=== PATIENT | female | born 1980 | race Caucasian/White ===

== ENCOUNTER 2016-09-21 12:03 | Emergency (ER) | payer MEDICARE ==
--- NOTE | ~2016-09-21 | CT2 ---
[facility] A Service of [facility] & [facility] RADIOLOGY TEXT RESULTS PATIENT: RICKIE TAMEZ I LOCATION: [facility] : [birth year] UNIT #: [id number] AGE: [address]: Matt Dodge DO SEX: F ORDER DR: [id number] [facility] [address] [place], [place] [address] [id number] MR#: [id number] Acc #: [id number] NAME: RICKIE TAMEZ I. : 1980 SEX: F STUDY DATE/TIME: 09/21/2016 14:43 UNIT: [facility] ROOM: STUDY DESCRIPTION: CT Abd and Pelv W Cont Attending Physician: Matt Dodge D.O. Ordering Physician: Matt Dodge D.O. Primary Care Physician: Leann Felix M.D. MEDICAL IMAGING REPORT This report is preliminary unless electronic signature is present EXAM CT abdomen and pelvis 09/21/2016 HISTORY Abdomen pain, nausea, diarrhea started Monday. Right lower quadrant left lower quadrant x5 days. TECHNIQUE CT abdomen and pelvis performed with intravenous administration of 100 mL Isovue-370. Enteric contrast not administered. This CT exam was performed with one or more of the following radiation dose reduction techniques: automatic exposure control, adjustment of mA and/or kV according to patient size, and iterative reconstruction. FINDINGS Lung bases show minimal dependent atelectasis. Inferior heart and pericardium unremarkable. Segment II 7-8 mm hepatic cyst. Remainder of the liver unremarkable. Gallbladder, spleen, pancreas, adrenal glands unremarkable. Left kidney and ureter normal. Right kidney contains non-obstructing 8-9 mm upper pole calculus. No acute right renal abnormalities. CT PELVIS: No inguinal adenopathy. Urinary bladder unremarkable. No fluid collection in the pelvis. Uterus and ovaries show no acute appearing abnormality. There is a vaginal tampon in place. No pelvic or retroperitoneal adenopathy. Fluid in the esophagus suggesting gastroesophageal reflux. This could place the patient at increased risk for aspiration. Stomach, small bowel, appendix unremarkable. Bony structures unremarkable. The vascular structures appear normal in overall caliber. STS. [facility] A Service of [facility] & [facility] RADIOLOGY TEXT RESULTS PATIENT: RICKIE TAMEZ I LOCATION: [facility] #: [id number] : [birth year] UNIT #: [id number] AGE: [address]: Matt Dodge DO SEX: F ORDER DR: Review of the liver shows tiny subcentimeter cysts in the hepatic dome. IMPRESSION 1. No clearly acute abnormalities seen in the abdomen or pelvis. Gallbladder, pancreas, appendix normal. 2. Kidneys show no acute abnormality. There is an 8-9 mm non-obstructing calculus upper pole of the right kidney. 3. There is adnexal regions show no acute abnormality. Vaginal tampon in place. 4. Small subcentimeter hepatic cysts. 5. There is some fluid in the esophagus suggesting gastroesophageal reflux. This may place patient at increased risk for aspiration. 6. Dependent atelectasis lung bases. Dictated by... Gadiel Chavez M.D. THIS IS AN ELECTRONICALLY VERIFIED REPORT Gadiel Chavez M.D. at 09/22/2016 8:25 AM Tessy TD: 09/21/2016 19:18 JOB #: [id number] MEDICAL IMAGING REPORT Page 1 of 1 COPY
[~2016-09-21 12:03] MED LIST: ABILIFY PO; COGENTIN PO; PRILOSEC20 MG PO; TOPAMAX200 MG PO
[2016-09-21 12:45] LABS: BASOPHIL% 0.8 % (0-2.5); EOSINOPHIL# 0.2 X10e3 (0-0.7); EOSINOPHIL% 2.7 % (0.0-7.0); HEMATOCRIT 40.7 % (35.0-45.0); HEMOGLOBIN 14.1 gm/dL (12.0-16.0); LYMPHOCYTE# 1.7 X10e3 (1.0-3.5); LYMPHOCYTE% 26.1 % (17.0-45.0); MEAN CELL VOLUME 90.1 FL (83-96); MEAN CORPUSCULAR HEMOGLOBIN 31.2 PG (28-34); MEAN CORPUSCULAR HGB CONC 34.6 g/dL (30-36); MEAN PLATELET VOLUME 6.2 FL (6.5-11.5); MONOCYTE# 0.7 X10e3 (0-1.0); MONOCYTE% 10.2 % (3.0-12.0); NEUTROPHIL# 3.8 X10e3 (1.5-7.1); NEUTROPHIL% 60.2 % (40-75); PLATELET COUNT 305 X10e3 (140-420); RED BLOOD COUNT 4.52 X10e (3.90-5.30); RED CELL DISTRIBUTION WIDTH 12.9 % (11.0-15.5); WHITE BLOOD COUNT 6.4 X10e3 (4.0-10.5)
[2016-09-21 12:53] LABS: DIFF IND NO
[2016-09-21 13:01] LABS: URINE SOURCE CLEAN CATCH
[2016-09-21 13:08] LABS: URINE APPEARANCE CLEAR; URINE BILIRUBIN NEG (NEG); URINE BLOOD 2+ (NEG); URINE COLOR YELLOW; URINE GLUCOSE NEG (NEG); URINE KETONE NEG (NEG); URINE LEUKOCYTE ESTERASE NEG (NEG); URINE NITRATE NEG (NEG); URINE PH 7.5 (5-8); URINE PROTEIN NEG (NEG); URINE SPECIFIC GRAVITY 1.003 (1.003-1.035); URINE UROBILINOGEN 0.2 MG/DL (NEG)
[2016-09-21 13:09] LABS: URBCS1 AUWI 0-2 /[HPF] (0-2); URINE BACTERIA AUWI NEG (NEGATIVE); URINE SQUAMOUS EPITHELIAL CELL NONE SEEN /[HPF]; UWBCS1 AUWI 0-2 (0-5)
[2016-09-21 13:22] LABS: ALBUMIN SERUM 3.8 g/dL (3.5-5.0); ALKALINE PHOSPHATASE 74 U/L (32-92); ALT (SGPT) 26 U/L (10-40); AST (SGOT) 17 U/L (10-42); BILIRUBIN,TOTAL 0.3 mg/dL (0.2-2.0); BLOOD UREA NITROGEN 11 mg/dL (9-23); BUN/CREATININE RATIO 15.71; CALCIUM SERUM 8.7 mg/dL (8.4-10.2); CARBON DIOXIDE 24 mmol/L (22-31); CHLORIDE 107 mmol/L (100-111); CREATININE SERUM 0.7 mg/dL (0.6-1.4); GLOM FILT RATE Estimated 112.3 mL/min (>60); GLUCOSE FASTING 95 mg/dL (70-110); LIPASE 27 U/L (22-51); POTASSIUM 4.3 mmol/L (3.5-5.1); SODIUM 139 mmol/L (135-145)
[2016-09-21 13:26] LABS: CULTURE INDICATED? NO
[2016-09-21 13:39] LABS: BILIRUBIN, DIRECT <0.1 mg/dL (0.0-0.2); BILIRUBIN,INDIRECT 0.2 mg/dL (0.0-0.9)
== END 2016-09-21 17:15 | disposition home or self-care (01) ==
LOC: CED 12:03
PROVIDERS: Emergency Medicine
DX: R10.9 Unspecified abdominal pain (principal); K21.9 Gastro-esophageal reflux disease without esophagitis; Z79.899 Other long term (current) drug therapy
CPT/HCPCS: 36415; 74177; 80048; 80076; 81003; 83690; 84703; 85025; 96361; 96372; 96374; 96375; 99284; J0500; J1885; J2405; Q9967

== ENCOUNTER 2016-10-31 18:32 | Inpatient (IN) | payer MEDICARE ==
[~2016-10-31] VITALS: Ht 167.6 cm; Wt 99.8 kg
--- NOTE | ~2016-10-31 | PA ---
Unit #: [id number] #: [id number] Patient: RICKIE TAMEZ I [id number] [place] [address] [id number] MR#: [id number] NAME: RICKIE TAMEZ I. ROOM: P171 Age: 36 Sex: F Admission Date: 10/31/2016 : 1980 Date of Assessment: 11/01/2016 Attending Physician: Harman Nicole M.D. Admitting Physician: Harman Nicole M.D. Primary Care Physician: Leann Felix M.D. PSYCHIATRIC ASSESSMENT IDENTIFYING INFORMATION The patient is a 36-year-old white female admitted with positive suicidal ideation and self-mutilatory behavior. INFORMANT(S) Patient. RELIABILITY Good. CHIEF COMPLAINT None given. HISTORY OF PRESENT ILLNESS The patient is a 36-year-old white female who is admitted to the [address] [place] [address] after she had presented to this facility voicing positive suicidal ideation and has been engaging in self-mutilatory behavior. The patient had reported increasing paranoid thoughts, feeling that friends were tapping her phone. She has a history of multiple previous psychiatric hospitalizations including hospitalizations at this facility in 2003 and 2009. She has also been admitted to [facility] in the past. The patient is currently followed at [facility]. She is prescribed Saphris but reports that this medication is causing problem with dry mouth. The patient is today continuing to endorse positive suicidal ideation. When seen, she also reports frequent episodes of temper outburst and has been the subject of a mental inquest warrant taken by her sister in the past related thereto. She lives alone. She reports that she recently broke up with "fiance." PAST PSYCHIATRIC HISTORY As above. FAMILY HISTORY Noncontributory. SOCIAL HISTORY The patient completed high school. She is disabled by her psychiatric illness and does not work outside the home. She denies use of alcohol, tobacco or street drugs but has an extensive substance abuse history. She states that she has been sober for 7 years. MEDICAL HISTORY Significant for history of obesity. Unit #: [id number] #: [id number] Patient: RICKIE TAMEZ I MEDICATION HISTORY 1. Saphris. 2. Clonidine. 3. Omeprazole. 4. Ketoprofen. 5. BuSpar. 6. Dicyclomine. ALLERGIES None. MENTAL STATUS EXAM At this time, reveals the patient to be an obese heavily tattooed white female appearing her stated age. She is in no apparent physical distress at the time of the examination. She is awake, alert, oriented in all spheres. Her mood is mildly dysphoric. Her affect congruent. Speech is generally relevant and coherent. There are no gross deficits in memory or cognition noted. Intelligence is judged to be in the average range based on fund of knowledge. The patient is cooperative throughout the interview. She continues to endorse positive suicidal ideation during today's interview. She denies homicidal ideation. She denies any psychotic symptoms. Her judgement and insight appear to be reasonably intact. ASSETS AND LIABILITIES Patient's assets, motivation for change. Liabilities, lack of resources. ADMITTING DIAGNOSES 1. Dysthymic disorder. 2. Borderline personality. 3. Obesity. 4. GERD. 5. Hypothyroidism. PSYCHIATRIC PLAN/TREATMENT GOALS The patient will be transferred to the [address] [place] [address] unit. She will continue on previously prescribed medications with the exception of Saphris. The patient reports a history of dyskinetic response to antipsychotic medications. I will therefore begin Trileptal 300 mg twice daily in hopes of addressing the patient's mood instability. ESTIMATED LENGTH OF STAY Five to seven days. Dictated by... Harman Nicole M.D. GINO/yolande TD: 11/01/2016 15:07 JOB #: [id number] Unit #: [id number] #: [id number] Patient: RICKIE TAMEZ Nemesio PSYCHIATRIC ASSESSMENT Page 1 of 1 X Harman Nicole MD PSYCHIATRIC ASSESSMENT
--- NOTE | ~2016-10-31 | PN ---
Unit #: [id number] #: [id number] Patient: RICKIE TAMEZ I [id number] [facility] [address] [place] [address] [id number] MR#: [id number] NAME: RICKIE TAMEZ I. ROOM: P252 Age: 36 Sex: F Admission Date: 10/31/2016 : 1980 Attending Physician: Harman Nicole M.D. Admitting Physician: Harman Nicole M.D. Primary Care Physician: Leann Felix M.D. [facility] PROGRESS NOTES DATE 11/03/2016 DISCUSSION The patient's progress continues. She is bright and active within the therapeutic milieu and reporting reduction in suicidal ideation. She reports significant relief with initiation of Trileptal and discontinuation of Saphris. Should the patient's progress continue, discharge could take place as early as tomorrow. Dictated by... Harman Nicole M.D. CB/bzg TD: 11/03/2016 14:15 JOB #: [id number] [facility] PROGRESS NOTES Page 1 of 1 X Harman Nicole MD X PROGRESS NOTE
--- NOTE | ~2016-10-31 | HP ---
Unit #: [id number] #: [id number] Patient: RICKIE TAMEZ I [id number] [place] [address] [id number] I MR#: [id number] NAME: RICKIE TAMEZ I. ROOM: P171 Age: 36 Sex: F Admission Date: 10/31/2016 : 1980 Attending Physician: Harman Nicole M.D. Admitting Physician: Harman Nicole M.D. Primary Care Physician: Leann Felix M.D. HISTORY AND PHYSICAL HISTORY OF PRESENT ILLNESS Rickie is a 36-year-old female admitted to [facility] on 10/31/2016 for depression and suicidal ideation. PAST MEDICAL HISTORY Asthma. PAST SURGICAL HISTORY An elbow fracture surgically repaired when she was 7 years old. SOCIAL HISTORY Smokes vapes, has a history of alcohol use and illegal drug use has been clean for 7 years. She is currently single and living alone. FAMILY HISTORY Noncontributory. REVIEW OF SYSTEMS CONSTITUTIONAL: No fever or chills. HEENT: Denies any sore throat, ear pain or runny nose. CARDIOVASCULAR: Denies chest pain, irregular heart rhythm or palpitations. CHEST: Denies shortness of breath or cough. No hemoptysis. GASTROINTESTINAL: Denies nausea, vomiting, diarrhea or chronic constipation. ENDOCRINE: Denies history of increased thirst or urination. No recent significant weight loss or gain. GENITOURINARY: Denies dysuria, frequency, or hematuria. SKIN: Denies any rashes. HEMATOLOGIC: Denies history of increased bleeding or bruising. MUSCULOSKELETAL: Denies any hot, swollen joints. No generalized muscle pain. NEUROLOGIC: Denies problems with vision or speech. No frequent, severe headaches. No numbness, tingling or weakness in any extremities. Denies loss of bladder or bowel control. CURRENT MEDICATIONS Saphris, Omeprazole, ketoprofen, benztropine, BuSpar, clonidine, and dicyclomine. ALLERGIES No known drug allergies. PHYSICAL EXAMINATION Unit #: [id number] #: [id number] Patient: RICKIE TAMEZ I GENERAL: Alert, oriented, no acute distress. VITAL SIGNS: Blood pressure 130/103, heart rate 85, respirations 20, temperature 95.7. HEIGHT: 5 feet 6. WEIGHT: 220 pounds. SKIN: Warm, dry. No rashes or lesions, track bailon, cuts, etc. HEENT: Normocephalic. TMs not viewed. Oronasal passages clear. Conjunctivae clear. PERRLA. EOM is intact. NECK: No lymphadenopathy or thyromegaly. HEART: Regular rate and rhythm. No murmur, gallop, or rub. LUNGS: Clear to auscultation bilaterally. ABDOMEN: Soft, nontender without palpable masses or hepatosplenomegaly. : Not assessed. EXTREMITIES: No evidence of cyanosis, clubbing, or edema. Moves all extremities independently without obvious deficit. NEUROLOGICAL: Grossly within normal limits. Cranial Nerves: II: Visual villanueva are intact. III, IV AND : Extraocular movements are intact. Pupils are equal, round and reactive to light. V: Facial sensation is grossly normal. VII: Facial movements and expression are normal. VIII: Auditory acuity grossly intact. IX, X: Uvula is midline. Phonation is normal. XI: Patient shrugs shoulders and turns head normally. XII: Tongue protrudes in the midline. Sensory and Motor Function: Sensory and motor sensation is grossly normal. Motor: moves all extremities well. Coordination: Gait is normal. Deep Tendon Reflexes: Intact. IMPRESSION 1. Psychiatric admission. 2. Asthma. 3. Gastroesophageal reflux disease. RECOMMENDATIONS PSYCHIATRIC: Per psychiatrist. MEDICAL: No contraindication to participate in this facility's activities. MEDICAL PROGNOSIS Good. MEDICAL CONDITION Stable. Dictated by... Garland AlfonsoPGabrielRDavid Burrell TD: 11/01/2016 11:49 JOB #: [id number] Unit #: [id number] #: [id number] Patient: RICKIE TAMEZ I HISTORY AND PHYSICAL Page 1 of 1 X JANINE ENRIQUEZ APRN HISTORY AND PHYSICAL
--- NOTE | ~2016-10-31 | DS ---
Unit #: [id number] #: [id number] Patient: RICKIE TAMEZ I [id number] [place] [address] [id number] MR#: [id number] NAME: RICKIE TAMEZ I. ROOM: P252 Age: 36 Sex: F Admission Date: 10/31/2016 : 1980 Discharge Date: 11/04/2016 Attending Physician: Harman Nicole M.D. Primary Care Physician: Leann Felix M.D. DISCHARGE SUMMARY REASON FOR ADMISSION The patient is a 36-year-old white female with a history of bipolar disorder with borderline personality traits, admitted voicing positive suicidal ideation. HOSPITAL COURSE The patient was admitted initially to the [facility] Unit but transferred to the [address] [place] [address] Unit. Previously prescribed Saphris to which the patient reported a history of intolerance secondary to side effects. It was discontinued and the patient instead begun on Trileptal 300 mg twice daily. She tolerated the medication quite well and showed rapid and steady improvement. During her brief stay in the hospital, she actively participated within the therapeutic milieu and denied suicidal ideation on 11/03/2016. By 11/04/2016, the patient was in bright spirits and requesting discharge, it was so ordered. FINAL DIAGNOSES 1. Bipolar disorder, most recent episode, depressed. 2. Borderline personality traits. 3. Gastroesophageal reflux disease. DISPOSITION ON DISCHARGE The patient was discharged on the following medications: 1. Trileptal 300 mg twice daily for mood stabilization. 2. Protonix 40 mg once daily for GERD. 3. BuSpar 20 mg twice daily for anxiety. 4. Catapres 0.1 mg once daily for anxiety. DIET AND ACTIVITY No dietary or physical restrictions were placed on the patient at the time of discharge. FOLLOWUP Followup will take place in the intensive outpatient program provided by this facility. PROGNOSIS Considered fair. Dictated by... Harman Nicole M.D. Unit #: [id number] #: [id number] Patient: RICKIE TAMEZ I GINO/kurt TD: 11/04/2016 14:40 JOB #: [id number] DISCHARGE SUMMARY Page 1 of 1 X Harman Nicole MD DISCHARGE SUMMARY
--- NOTE | ~2016-10-31 | A ---
[facility] Nutrition Therapy DATE: 11/02/16 Patient: RICKIE TAMEZ Physician: YI Address: [address] Room/Bed: P252[address] [place] [address], Zip: [place] [address] Admit Date: 10/31/16 Date of : [birth year] Height: 5 6 Weight: 219 99.82114 NUTRITIONAL ASSESSMENT: REASON: 2 NUTRITIONAL RISK POINTS- UNINTENTIONAL WEIGHT LOSS, EATING DISORDER WITH ACTIVE SYMPTOMS PATIENT ADMITTED FOR SI AND DEPRESSION PMH: ASTHMA Anthropometrics: HT: 66", WT: 220#, BMI: 35.5 Labs: 11/01/16- CA: 8.3, ALL OTHER NUTRITION LABS WNL Meds: BUSPAR, COGENTIN, PROTONIX Assessment: PATIENT IS A 36 Y/O FEMALE ADMITTED FOR SI AND DEPRESSION. PATIENT IS CURRENTLY UNEMPLOYED, ON DISABILITY, LIVES ALONE, AND HAS A HX OF POLYSUBSTANCE ABUSE HOWEVER SHE HAS BEEN CLEAN FOR LAST 7 YEARS. PER NEEDS ASSESSMENT PATIENT STATED A POOR APPETITE WITH A 50# WEIGHT GAIN OVER THE LAST 2 YEARS. SHE REPORTS THAT SHE IS NOT SLEEPING WELL, AND SHE WILL WAIT UNTIL SHE IS ALMOST STARVING AND ABOUT TO PASS OUT BEFORE SHE WILL EAT. SHE THEN EATS VERY QUICKLY AND IS HUNGRY 5 MINTUES LATER. PATIENT HAS NO HX OF EATING DISORDERS IN CHART. NURSING REPORTS GOOD PO INTAKES. WEIGHT HX PER [facility] SHOWS A WEIGHT OF 210# DURING HER LAST ADMIT TO THIS FACILITY 10 YEARS AGO. PATIENT IS NOT CURRENTLY ON ANY EATING PRECAUTIONS. CURRENT PSYCH MEDS MAY CAUSE WEIGHT AND APPETITE FLUCTUATIONS. SHE HAS A HX OF MULTIPLE INPATIENT PSYCH HOSPITALIZATIONS. THERE ARE NO SKIN OR GI ISSUES NOTED ATT. PATIENT'S NUTRITIONAL LABS WERE WNL, AND SHE HAS A HIGH BMI OF 35.5. PATIENT IS CURRENTLY ON A REGULAR DIET. Dx: NO NUTRITION DX Intervention: REGULAR DIET, MEDS PER MD, PSYCH Monitoring, Evaluation and Goals: 1. ADEQUATE PO INTAKES >50% OF MEALS 2. PREVENT, CORRECT MICRO/MACRO NUTRIENT DEFICIENCIES MONITOR: WEIGHTS, LABS, PO/FLUID INTAKES Recommendations: 1. CONTINUE REGULAR DIET TOLERATED. 2. ENCOURAGE ADEQUATE PO AND FLUID INTAKES [facility] Nutrition Therapy DATE: 11/02/16 Patient: RICKIE TAMEZ Physician: YI Address: [address] Room/Bed: P252-[address] [facility], Zip: [place] [address] Admit Date: 10/31/16 Date of : [birth year] Height: 5 6 Weight: 219 99.31843 3. START PRECAUTIONS IF PATIENT EXHIBITS EATING DISORDER BEHAVIOR RD TO F/U PER PROTOCOL AND PRN R/T PATIENT NOT CURRENTLY AT NUTRITIONAL RISK Respectfully, ALLEN MCARTHUR RD, LD Food and Nutritional Services [facility] cc: client file
--- NOTE | ~2016-10-31 | PN ---
Unit #: [id number] #: [id number] Patient: RICKIE TAMEZ I [id number] [facility] [address] [place] [address] [id number] I MR#: [id number] NAME: RICKIE TAMEZ I. ROOM: P252 Age: 36 Sex: F Admission Date: 10/31/2016 : 1980 Attending Physician: Harman Nicole M.D. Admitting Physician: Harman Nicole M.D. Primary Care Physician: Maddie Weeks PROGRESS NOTES DATE 11/02/2016 DISCUSSION The patient has been transferred to the [address] [place] [address] Unit and is much more comfortable in this environment. She has tolerated an initiation of Trileptal without complaints and states that she is "already feeling a little better." We continue current treatment, and the patient expresses interest in followup in the intensive outpatient program. Dictated by... Harman Nicole M.D. CB/bzg TD: 11/02/2016 13:33 JOB #: [id number] [facility] PROGRESS NOTES Page 1 of 1 X Harman Nicole MD X PROGRESS NOTE
[2016-11-01 09:34] LABS: BASOPHIL# 0.1 X10e3 (0-0.3); BASOPHIL% 0.8 % (0-2.5); EOSINOPHIL# 0.3 X10e3 (0-0.7); EOSINOPHIL% 4.6 % (0.0-7.0); HEMATOCRIT 40.4 % (35.0-45.0); HEMOGLOBIN 13.2 gm/dL (12.0-16.0); LYMPHOCYTE# 2.2 X10e3 (1.0-3.5); LYMPHOCYTE% 32.2 % (17.0-45.0); MEAN CELL VOLUME 91.5 FL (83-96); MEAN CORPUSCULAR HEMOGLOBIN 29.9 PG (28-34); MEAN CORPUSCULAR HGB CONC 32.7 g/dL (30-36); MONOCYTE# 0.7 X10e3 (0-1.0); MONOCYTE% 10.6 % (3.0-12.0); NEUTROPHIL# 3.5 X10e3 (1.5-7.1); NEUTROPHIL% 51.8 % (40-75); PLATELET COUNT 301 X10e3 (140-420); RED BLOOD COUNT 4.42 X10e (3.90-5.30); WHITE BLOOD COUNT 6.9 X10e3 (4.0-10.5)
[2016-11-01 09:38] LABS: DIFF IND NO
[2016-11-01 10:30] LABS: ALBUMIN SERUM 3.5 g/dL (3.5-5.0); BILIRUBIN,TOTAL 0.2 mg/dL (0.2-2.0); BUN/CREATININE RATIO 12.5; CALCIUM SERUM 8.3 mg/dL (8.4-10.2); CREATININE SERUM 0.8 mg/dL (0.6-1.4); GLOM FILT RATE Estimated 95.6 mL/min (>60); POTASSIUM 4.3 mmol/L (3.5-5.1)
[2016-11-02 10:12] LABS: URINE APPEARANCE CLEAR; URINE BILIRUBIN NEG (NEG); URINE BLOOD NEG (NEG); URINE COLOR YELLOW; URINE GLUCOSE NEG (NEG); URINE KETONE NEG (NEG); URINE LEUKOCYTE ESTERASE NEG (NEG); URINE NITRATE NEG (NEG); URINE PROTEIN NEG (NEG); URINE SPECIFIC GRAVITY 1.005 (1.003-1.035); URINE UROBILINOGEN 0.2 MG/DL (NEG)
[2016-11-02 10:44] LABS: AMPHETAMINE NEG (NEG); BARBITURATES NEG (NEG); BENZODIAZEPINES NEG (NEG); COCAINE NEG (NEG); MARIJUANA NEG (NEG); OPIATES NEG (NEG); TRICYCLIC ANTIDEPRESSANTS NEG (NEG); U METHADONE NEG (NEG)
== END 2016-11-04 15:05 | disposition home or self-care (01) | DRG 881 ==
LOC: P1E 20:50 → P2L 11-01 18:48
PROVIDERS: Psychiatry & Neurology Psychiatry
DX: F34.1 Dysthymic disorder (principal); E03.9 Hypothyroidism, unspecified; F60.3 Borderline personality disorder; E66.9 Obesity, unspecified; K21.9 Gastro-esophageal reflux disease without esophagitis; J45.909 Unspecified asthma, uncomplicated; F17.210 Nicotine dependence, cigarettes, uncomplicated; F41.9 Anxiety disorder, unspecified
CPT/HCPCS: 80053; 80307; 81003; 84703; 85025